=== PATIENT | female | born 1985 | race African-American/Black ===

== ENCOUNTER 2017-07-21 15:30 | Emergency (ER) | payer OTHER ==
[~2017-07-21] VITALS: Ht 175.3 cm; Wt 74.8 kg
[~2017-07-21 15:30] MED LIST: FLAGYL500 MG PO; PRENATAL VITAM1 EAC9 PO; PROPRANOLOL 1010 M1; ZOLOFT25 MG
[2017-07-21 16:54] LABS: URINE BILIRUBIN NEGATIVE (Negative); URINE BLOOD TRACE (Negative); URINE COLOR YELLOW; URINE GLUCOSE-RANDOM* NEGATIVE (Negative); URINE KETONES NEGATIVE (Negative); URINE NITRITE NEGATIVE (Negative); URINE PROTEIN (DIPSTICK) 1+ (Negative); URINE SPECIFIC GRAVITY 1.015 (1.003-1.035)
[2017-07-21 17:02] LABS: BACTERIA >30 Many /HPF (None Seen); SQUAMOUS 4-10 Moderate /LPF (0-3); URINE RBC 3-10 Few /HPF (0-2); URINE WBC 0-5 Rare /HPF (0-5)
[2017-07-21 17:03] LABS: CASTS None Seen /LPF (None Seen); CRYSTALS None Seen /LPF (None Seen)
[2017-07-21 17:08] LABS: HEMATOCRIT 41.1 % (37.0-47.0); HEMOGLOBIN 13.7 gm/dL (12.0-15.0); LYMPHOCYTES 32.5 % (24.0-44.0); MCH 30.2 pg (26.0-34.0); MCHC 33.4 g/dL (28.0-37.0); MCV 90.4 fL (80.0-100.0); MONOCYTES 8.1 % (1.0-8.0); PLATELET COUNT 230 thou/uL (150-400); POLYS 57.4 % (36.0-66.0); RBC 4.55 mil/uL (4.20-5.00); RDW 13.7 % (10.5-14.5); WBC 13.9 thou/uL (4.0-11.0)
[2017-07-21 17:09] LABS: MANUAL DIFF NO
[2017-07-21 17:16] LABS: CALCIUM 8.6 mg/dL (8.5-10.1); CREATININE 0.7 mg/dL (0.6-1.0); POTASSIUM 3.4 mmol/L (3.5-5.1)
[2017-07-21 17:22] LABS: ALBUMIN 3.6 g/dL (3.4-5.0); TOTAL BILIRUBIN 0.3 mg/dL (<0.1-1.0); TOTAL PROTEIN 7.5 g/dL (6.4-8.2)
[2017-07-21] MEDS ORDERED: ONDANSETRON HCL4 M2 PO (19:17)
[2017-07-21] MEDS ORDERED: ZANTAC 150MG T150 MG PO (19:17)
[2017-07-21 19:30] VITALS: BP 117/85
== END 2017-07-21 19:30 | disposition home or self-care (01) ==
LOC: ER 15:30
PROVIDERS: Nurse Practitioner Family
DX: R11.2 Nausea with vomiting, unspecified (principal); R10.10 Upper abdominal pain, unspecified; F41.9 Anxiety disorder, unspecified; F10.99 Alcohol use, unspecified with unspecified alcohol-induced disorder; Z98.890 Other specified postprocedural states

== ENCOUNTER 2017-09-27 10:21 | Emergency (ER) | payer OTHER ==
[~2017-09-27] VITALS: Ht 170.2 cm; Wt 75.8 kg
--- NOTE | ~2017-09-27 | EKG ---
[address] [address] ELECTROCARDIOGRAM REPORT Name: STIVEN PEPPER [facility] [id number] Admission: 09/27/17 Attend Phys: Discharge: 09/27/17 Date of : 89 Report #: [id number] THIS REPORT FOR: //name// [facility] ED Test Date: 2017-09-27 Test Time: 10:27:34 Pat Name: STIVEN PEPPER Department: Room: Gender: F Public Health Assistant: [facility] : 1985 Requested By: Rina Mccrary Order Number: [id number] MD: Nickolas Victor Measurements Intervals Independence Rate: 74 P: 45 ND: 147 QRS: 54 QRSD: 91 T: 39 QT: 392 QTc: 435 Interpretive Statements Sinus rhythm No previous ECG available for comparison Electronically Signed On 09-27-2017 16:04:59 GENERAL OPHTHALMOLOGIST by Nickolas Victor [email or web address] <ELECTRONICALLY SIGNED> By: Nickolas Victor MD 09/27/17 1604 1027 1027 Nickolas Victor MD /MARCIANO
[~2017-09-27 10:21] MED LIST changes: +ONDANSETRON HCL4 M2 PO; +ZANTAC 150MG T150 MG PO
[2017-09-27] MEDS ORDERED: ZOLOFT50 MG PO (11:56)
[2017-09-27] MEDS ORDERED: PROPRANOLOL 1010 MG PO (11:57)
[2017-09-27] MEDS ORDERED: NAPROSYN500 MG PO (13:22)
== END 2017-09-27 13:54 | disposition home or self-care (01) ==
LOC: ER 10:21
DX: R07.89 Other chest pain (principal); F41.9 Anxiety disorder, unspecified; Z98.890 Other specified postprocedural states

== ENCOUNTER 2019-12-07 19:51 | Emergency (ER) | payer OTHER ==
[~2019-12-07] VITALS: Ht 165.1 cm; Wt 72.6 kg
[~2019-12-07 19:51] MED LIST changes: +MACROBID 100 M100 M2 PO; +NABUMETONE 750750 M1 PO; +NAPROSYN500 MG PO; +PROPRANOLOL 1010 MG PO; +VAGISIL CREAM28 G1 TOP; +ZOLOFT50 MG PO
[2019-12-07 20:12] LABS: URINE BILIRUBIN NEGATIVE (Negative); URINE BLOOD 1+ (Negative); URINE CLARITY CLEAR; URINE COLOR YELLOW; URINE GLUCOSE-RANDOM* NEGATIVE (Negative); URINE KETONES TRACE (Negative); URINE LEUKOCYTES-REFLEX NEGATIVE (Negative); URINE NITRITE-REFLEX NEGATIVE (Negative); URINE PROTEIN (DIPSTICK) NEGATIVE (Negative); URINE SPECIFIC GRAVITY >= 1.030 (1.005-1.035)
[2019-12-07] MEDS ORDERED: VIRTUSSIN AC L118 ML PO (20:19)
[2019-12-07] MEDS ORDERED: PROAIR HFA8.5 GM INH (20:19)
[2019-12-07 20:27] LABS: BACTERIA-REFLEX None Seen /HPF (None Seen); CASTS None Seen /LPF (None Seen); CRYSTALS None Seen /LPF (None Seen); MUCUS None Seen strn/LPF (None Seen); SQUAMOUS 0-3 Few /LPF (0-3); URINE RBC 0-2 Rare /HPF (0-2); URINE WBC-REFLEX 0-5 Rare /HPF (0-5)
[2019-12-07] MEDS ORDERED: KEFLEX500 M1 PO (20:32)
[2019-12-07 20:38] VITALS: BP 112/77
== END 2019-12-07 20:46 | disposition home or self-care (01) ==
LOC: ER 19:51
PROVIDERS: Nurse Practitioner Family
DX: R30.0 Dysuria (principal); R35.0 Frequency of micturition; R39.15 Urgency of urination; Z79.899 Other long term (current) drug therapy

== ENCOUNTER 2020-01-10 08:49 | Emergency (ER) | payer OTHER ==
[~2020-01-10] VITALS: Ht 170.2 cm; Wt 71.2 kg
[~2020-01-10 08:49] MED LIST changes: +KEFLEX500 M1 PO; +PROAIR HFA8.5 GM INH; +VIRTUSSIN AC L118 ML PO
[2020-01-10 08:54] VITALS: BP 123/84
[2020-01-10 09:01] LABS: URINE BILIRUBIN NEGATIVE (Negative); URINE BLOOD 1+ (Negative); URINE CLARITY SL CLOUDY; URINE COLOR YELLOW; URINE GLUCOSE-RANDOM* NEGATIVE (Negative); URINE KETONES NEGATIVE (Negative); URINE NITRITE-REFLEX NEGATIVE (Negative); URINE PROTEIN (DIPSTICK) TRACE (Negative); URINE SPECIFIC GRAVITY >= 1.030 (1.005-1.035); URINE UROBILINOGEN 0.2 E.U./dl (0.2-1.0)
[2020-01-10 09:06] LABS: URINE LEUKOCYTES-REFLEX 1+ (Negative)
[2020-01-10 09:15] LABS: CASTS None Seen /LPF (None Seen); MUCUS >6 Heavy strn/LPF (None Seen); SQUAMOUS 4-10 Moderate /LPF (0-3)
[2020-01-10 09:16] LABS: BACTERIA-REFLEX >30 Many /HPF (None Seen); CRYSTALS None Seen /LPF (None Seen); URINE RBC 0-2 Rare /HPF (0-2)
[2020-01-10] MEDS ORDERED: MACROBID 100 M100 M1 PO (09:18)
[2020-01-10] MEDS ORDERED: PYRIDIUM200 MG PO (09:18)
== END 2020-01-10 09:22 | disposition home or self-care (01) ==
LOC: ER 08:49
PROVIDERS: Emergency Medicine
DX: N39.0 Urinary tract infection, site not specified (principal); F41.9 Anxiety disorder, unspecified; Z79.2 Long term (current) use of antibiotics; Z87.59 Personal history of other complications of pregnancy, childbirth and the puerperium